=== PATIENT | male | born 1990 | race Caucasian/White ===

== ENCOUNTER 2018-04-28 20:43 | Emergency (ER) | payer SELFPAY, OTHER | END 2018-04-29 00:46 | disposition left against medical advice (07) | LOC: M ED 20:43 | DX: M25.532 Pain in left wrist (principal) | CPT/HCPCS: 73110 ==

== ENCOUNTER 2018-04-30 11:03 | Emergency (ER) | payer SELFPAY | END 2018-04-30 11:52 | disposition home or self-care (01) | LOC: M ED 11:03 | DX: S46.912A Strain of unspecified muscle, fascia and tendon at shoulder and upper arm level, left arm, initial encounter (principal); S56.912A Strain of unspecified muscles, fascia and tendons at forearm level, left arm, initial encounter; X50.0XXA Overexertion from strenuous movement or load, initial encounter; Y92.9 Unspecified place or not applicable; Y93.9 Activity, unspecified; Y99.0 Civilian activity done for income or pay; Z72.0 Tobacco use | CPT/HCPCS: 99282 ==

== ENCOUNTER 2018-05-02 11:50 | Emergency (ER) | payer SELFPAY | END 2018-05-02 13:04 | disposition home or self-care (01) | LOC: M ED 11:50 | DX: M21.332 Wrist drop, left wrist (principal); F17.210 Nicotine dependence, cigarettes, uncomplicated | CPT/HCPCS: 99284 ==